=== PATIENT | female | born 1940 | race Caucasian/White ===

== ENCOUNTER → 2016-10-13 | Outpatient (CLI) | payer OTHER | END | disposition home or self-care (01) | LOC: C.PAPS 13:57 | PROVIDERS: ATTEND Family Medicine | DX: Z01.419 Encounter for gynecological examination (general) (routine) without abnormal findings (principal); R87.619 Unspecified abnormal cytological findings in specimens from cervix uteri ==

== ENCOUNTER → 2016-10-13 | Outpatient (CLI) | payer OTHER ==
[2016-10-13 13:26] LABS: BASO % 0.2 %; BASO ABS # 0.01 K/uL (0-0.2); COMPLETE YES; EOS % 3.5 %; HEMATOCRIT 38.6 % (37-47); IG% 0.2 %; LYMPH ABS # 1.14 K/uL (1.2-3.4); MEAN CELL VOLUME 96.7 fL (80-100); MEAN CORPUSCULAR HEMOGLOBIN 30.3 pg (25-34); MEAN CORPUSCULAR HGB CONC 31.3 g/dl (32-36); MEAN PLATELET VOLUME 10.5 fL (7.4-10.4); MONO % 10.6 %; NEUT % 66.5 %; PLATELET COUNT 312 K/uL (130-400); RED BLOOD COUNT 3.99 M/uL (4.2-5.4); WHITE BLOOD COUNT 6.01 K/uL (4.8-10.8)
[2016-10-13 13:35] LABS: ALT/SGPT 18 U/L (12-78); BLOOD UREA NITROGEN 17 mg/dl (7-18); CARBON DIOXIDE 29 mmol/L (21-32); CHLORIDE 106 mmol/L (98-107); CHOLESTEROL 133 mg/dl (0-200); CREATININE 0.65 mg/dl (0.60-1.20); GLUCOSE 93 mg/dl (70-99); POTASSIUM 3.7 mmol/L (3.5-5.1); SODIUM 144 mmol/L (136-145)
[2016-10-13 13:36] LABS: CALCIUM 8.4 mg/dl (8.5-10.1)
[2016-10-13 13:46] LABS: ALB/GLOB RATIO 0.8 (0.9-2); ALKALINE PHOSPHATASE 61 U/L (45-117); AST/SGOT 13 U/L (15-37); CHOLESTEROL/HDL RATIO 2.3; HDL CHOLESTEROL 57 mg/dl; LDL CHOLESTEROL CALCULATED 61 mg/dl; TRIGLYCERIDES 73 mg/dl (0-150); VERY LOW DENSITY LIPOPROT CALC 15 mg/dl
== END | disposition home or self-care (01) ==
LOC: C.LABMFLN 16:21
PROVIDERS: ATTEND Family Medicine
DX: I10 Essential (primary) hypertension (principal); E78.5 Hyperlipidemia, unspecified; E03.9 Hypothyroidism, unspecified

== ENCOUNTER → 2017-02-04 | Outpatient (CLI) | payer OTHER | END | disposition home or self-care (01) | LOC: C.LABMFLN 09:32 | PROVIDERS: ATTEND Physician Assistant | DX: J02.9 Acute pharyngitis, unspecified (principal) ==

== ENCOUNTER → 2017-12-07 | Outpatient (CLI) | payer OTHER ==
[~2017-12-07] MED LIST: ASPI81TA28 PO; ATOR10TA82 PO; B-COTAB18; CYCL0.052 OP; LEVO75TA PO; METO25TA56 PO; OPTIRAY 320 IV PRN; TRIA37.5 PO
--- NOTE | 2017-12-07 12:23 | DIAGNOSTIC IMAGING REPORT ---
CT ANGIOGRAPHY OF THE CHEST CLINICAL HISTORY: Ascending aortic dilatation. COMPARISON STUDY: Chest radiograph November 03, 2017. TECHNIQUE: Arterial phase images of the chest were obtained following intravenous injection of 119 cc of Optiray 320. Sagittal and coronal reconstructions were viewed as well as maximal intensity projections on an independent 3-D workstation. FINDINGS: Heart is moderately enlarged. There is no pericardial effusion. There is mild dilatation of the ascending aorta which measures 4 cm at the level the main pulmonary artery. The caliber of the aortic root is at the upper limits of normal. There is no thoracic aortic dissection. No pulmonary emboli are identified. Central airways are patent. There is no consolidation to suggest pneumonia. Biapical pleural thickening which is partially calcified favor scarring. Central airways are patent. No pneumothorax or pleural effusion is noted. Bony thorax and upper abdomen are unremarkable. There are presumed post surgical findings with the left breast. IMPRESSION: 1. Mild dilatation of the ascending aorta which measures 4 cm at the level of the main pulmonary artery. No thoracic aortic dissection. 2. Moderate cardiomegaly. 3. Presumed post surgical findings within the left breast. Electronically signed by: Gregory Gerardo M.D. 12/07/2017 12:21 PM Dictated Date/Time: 12/07/2017 12:09 PM
== END | disposition home or self-care (01) ==
LOC: C.CTS 11:35
PROVIDERS: ATTEND Physician Assistant
DX: I77.810 Thoracic aortic ectasia (principal)